=== PATIENT | female | born 1970 | race Caucasian/White ===

== ENCOUNTER 2023-07-26 08:32 | Emergency (ER) | payer OTHER, SELFPAY ==
[2023-07-26 08:33] VITALS: BP 119/75; PULSE 90; RESP 18; TEMP 36.8; O2SAT 98; BMI 38.0
--- NOTE | 2023-07-26 08:52 | PC.NURSE ---
DR BAUM AT BEDSIDE
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
--- NOTE | 2023-07-26 09:06 | PC.NURSE ---
Pt gone to RAD via wheelchair
--- NOTE | 2023-07-26 09:13 | PC.NURSE ---
Pt returned from RAD
[2023-07-26] MEDS: IBUPROFEN 400 MG TABLET 800 MG PO (09:15)
[2023-07-26 09:26] VITALS: BP 120/78; PULSE 90; RESP 18; TEMP 36.8; O2SAT 99
== END 2023-07-26 09:31 | disposition home or self-care (01) ==
PROVIDERS: Emergency Provider Student in an Organized Health Care Education/Training Program; PCP Nurse Practitioner Family
DX: S97.02XA Crushing injury of left ankle, initial encounter (principal); W23.2XXA Caught, crushed, jammed or pinched between a moving and stationary object, initial encounter
CPT/HCPCS: 73610; 73620; 99284